=== PATIENT | female | born 1985 | race Caucasian/White ===

== ENCOUNTER 2022-05-28 08:19 | Outpatient (CLI) | payer OTHER, SELFPAY ==
[2022-05-28 08:53] LABS: Hematocrit 38.2 % (33.0-51.0); Mean Corpuscular HGB Conc 34 gm/dL (32-36); Mean Corpuscular Hemoglobin 28 pg (26-34); Mean Corpuscular Volume 84 fL (80-100); Platelet Count* 273 K/uL (140-440); Red Blood Count 4.57 m/uL (4.00-5.20); White Blood Count* 5.97 K/uL (4.50-11.00)
[2022-05-28 08:54] LABS: Slide Review Reflex No
[2022-05-28 17:39] LABS: Albumin* 4.2 g/dL (3.3-5.0); Chloride* 105 mmol/L (96-114)
[2022-05-28 17:40] LABS: Potassium* 4.4 mmol/L (3.6-5.1); Sodium* 140 mmol/L (135-149)
[2022-05-28 17:42] LABS: Bilirubin Total* 0.2 mg/dL (0.1-1.5); Creatinine* 0.6 mg/dL (0.5-1.5); Estimated Glomerular Filt Rate 119 ml/min
[2022-05-28 17:43] LABS: Alanine Aminotransferase* 57 U/L (4-35); Alkaline Phosphatase* 97 U/L (40-150); Aspartate Amino Transferase* 26 U/L (12-35); Blood Urea Nitrogen* 13 mg/dL (5-24); Calcium* 9.1 mg/dL (8.4-10.6); Carbon Dioxide* 22 mmol/L (20-32); Glucose* 122 mg/dL (60-115); Total Protein* 6.9 g/dL (6.0-8.3)
[2022-05-28 17:46] LABS: C Reactive Protein* 1.4 mg/dL (0.5-1.0)
[2022-05-29 22:21] LABS: Immunoglobulin A 131 mg/dL (68-408)
[2022-05-30 06:39] LABS: Tissue Transglutaminase IgA < 2 U/mL (0-3)
== END 2022-05-28 08:20 | disposition home or self-care (01) ==
PROVIDERS: PCP Physician Assistant Medical; Visit Provider Family Medicine
DX: R19.7 Diarrhea, unspecified (principal)
CPT/HCPCS: 80053; 82784; 84443; 85027; 86140

== ENCOUNTER 2022-12-02 13:17 | Outpatient (CLI) | payer OTHER, SELFPAY | END 2022-12-02 13:18 | disposition home or self-care (01) | PROVIDERS: PCP Physician Assistant Medical; Visit Provider Physician Assistant Medical | DX: E78.5 Hyperlipidemia, unspecified (principal); E55.9 Vitamin D deficiency, unspecified; R19.7 Diarrhea, unspecified; Z13.1 Encounter for screening for diabetes mellitus | CPT/HCPCS: 80053; 80061; 84443 ==

== ENCOUNTER 2025-06-05 08:50 | Outpatient (CLI) | payer BC, SELFPAY | END 2025-06-05 08:51 | disposition home or self-care (01) | LOC: NFLDREF 06-10 22:56 | PROVIDERS: PCP Physician Assistant Medical; Referring Provider Physician Assistant Medical; Visit Provider Physician Assistant Medical | DX: Z13.9 Encounter for screening, unspecified (principal); E78.2 Mixed hyperlipidemia; F41.9 Anxiety disorder, unspecified | CPT/HCPCS: 80053; 80061; 84443 ==